=== PATIENT | male | born 1985 | race African-American/Black ===

== ENCOUNTER 2016-08-02 16:30 | Emergency (ER) | payer SELFPAY | END 2016-08-02 19:12 | disposition home or self-care (01) | LOC: ER 16:30 | DX: S61.254A Open bite of right ring finger without damage to nail, initial encounter (principal); F17.200 Nicotine dependence, unspecified, uncomplicated; W50.3XXA Accidental bite by another person, initial encounter | CPT/HCPCS: 80048; 85025; 90471; 90714; 99283; A9270-GY ==